=== PATIENT | female | born 1955 | race Caucasian/White ===

== ENCOUNTER 2016-04-22 05:24 | Inpatient (IN) | payer BC ==
[2016-04-21 09:57] VITALS: BMI 32.5
[2016-04-22] VITALS (31 sets, daily range): BP systolic 96–131; BP diastolic 52–94; PULSE 64–103; RESP 9–22; Ht 162.6 cm; Wt 92.0 kg
[~2016-04-22] VITALS: Ht 162.6 cm; Wt 92.0 kg
[2016-04-22] MEDS ORDERED: ATOR10TA65 PO (06:28)
[2016-04-22] MEDS ORDERED: LEVO112T2 PO (06:28)
[2016-04-22] MEDS ORDERED: DIAZ5SOL PO (06:28)
[2016-04-22] MEDS ORDERED: TRAM50TA2 PO (06:28)
[2016-04-22] MEDS ORDERED: BUPIVACAINE 0.25%/EPI (SDV) 30 ML INJ ONE (06:47)
[2016-04-22] MEDS ORDERED: GELATIN SIZE 100 SPONGE ONE ×2 (06:47→13:57)
[2016-04-22] MEDS ORDERED: SURGIFOAM POWDER 1 GM KIT ONE ×2 (06:47→08:59)
[2016-04-22] MEDS ORDERED: CEFAZOLIN 1 GM INJ ONE ×2 (06:47→07:44)
[2016-04-22] MEDS ORDERED: HEPARIN 1000 UNITS/ML 10 ML INJ ONE (06:48)
[2016-04-22] MEDS ORDERED: THROMBIN 5000 UNIT VIAL ONE ×2 (06:48→09:00)
--- NOTE | 2016-04-22 06:54 | HPN ---
Date/Time of Note Date/Time of Note DATE: 04/22/16 TIME: 06:54 Interval H&P Admission Note Pt. seen H&P reviewed: No system changes ERIN SHELBY MD Apr 22, 2016 06:54
[2016-04-22] MEDS ORDERED: PROPOFOL 100 ML ONE ×2 (06:55→11:31)
[2016-04-22] MEDS ORDERED: ROCURONIUM 50 MG INJ ONE ×2 (06:55→11:34)
[2016-04-22] MEDS ORDERED: HYDROmorphONE 2 MG/ML SYG ONE (06:56)
[2016-04-22] MEDS ORDERED: HETASTARCH 6% NACL 500 ML BAG ONE (07:00)
[2016-04-22] MEDS ORDERED: LACTATED RINGER'S 1,000 ML IV* SCH (07:00)
[2016-04-22] MEDS ORDERED: OXYCODONE/ACETAMINOPHEN (10/325) TAB PO PRN (07:00)
[2016-04-22] MEDS ORDERED: ACETAMINOPHEN 325 MG TAB PO PRN (07:00)
[2016-04-22] MEDS ORDERED: ONDANSETRON 4 MG INJ IV PRN ×2 (07:00→12:00)
[2016-04-22] MEDS ORDERED: HYDROmorphONE 0.2 MG/ML PCA IV SCH (07:00)
[2016-04-22] MEDS ORDERED: HYDROmorphONE 1 MG/ML SYG IV PRN (07:00)
[2016-04-22] MEDS ORDERED: NALOXONE (0.4 MG/ML) INJ IV PRN (07:00)
[2016-04-22] MEDS ORDERED: AL HYDROX/MG HYDROX/SIMETH 30 ML CUP PO PRN (07:00)
[2016-04-22] MEDS ORDERED: DIPHENHYDRAMINE 25 MG CAP PO PRN (07:00)
[2016-04-22] MEDS ORDERED: BISACODYL 10 MG SUPP PR PRN (07:00)
[2016-04-22] MEDS ORDERED: DIPHENHYDRAMINE 50 MG INJ IV PRN ×2 (07:00→12:00)
[2016-04-22] MEDS: CEFAZOLIN 1 GM/50 ML (PMX) 50 ML IVPB SCH ×3 (07:00→21:56)
[2016-04-22] MEDS ORDERED: CEPASTAT LOZENGE MT PRN (07:00)
[2016-04-22] MEDS ORDERED: CEFAZOLIN 2 GM/50 ML (PMX) 50 ML IVPB SCH (07:00)
[2016-04-22] MEDS ORDERED: ZOLPIDEM 5 MG TAB PO PRN (07:00)
[2016-04-22] MEDS ORDERED: MIDAZOLAM 1 MG/ML 2 ML INJ ONE (07:19)
[2016-04-22] MEDS ORDERED: hydrALAzine 20 MG INJ ONE (07:44)
[2016-04-22] MEDS ORDERED: LABETALOL HCL 20MG INJ ONE (08:33)
[2016-04-22] MEDS ORDERED: PHENYLephrine (100 MCG/ML) 5ML SYG ONE ×4 (08:41→09:06)
[2016-04-22] MEDS ORDERED: ACETAMINOPHEN 1000MG/100ML IV 100 ML ONE (08:50)
[2016-04-22] MEDS ORDERED: DEXAMETHASONE 4 MG/ML 1 ML INJ ONE (09:00)
[2016-04-22] MEDS ORDERED: METOCLOPRAMIDE 10 MG INJ ONE (09:00)
[2016-04-22] MEDS: ASCORBIC ACID 500 MG TAB PO SCH (09:00)
[2016-04-22] MEDS ORDERED: ONDANSETRON 4 MG INJ ONE (09:00)
[2016-04-22] MEDS: DOCUSATE SODIUM 100 MG CAP PO SCH ×2 (09:00→21:00)
--- NOTE | 2016-04-22 10:17 | RADRPT ---
PROCEDURE: XR Abdomen. CLINICAL INDICATION: Abdomen pain. Postop lumbar fusion. TECHNIQUE: AP supine abdomen x-ray. Portable. Intraoperative. COMPARISON: None. FINDINGS: The bowel gas pattern is normal with no evidence of obstruction. Surgical clips are present in the pelvis. There is a plate and screws overlying the lower lumbosacr al spine. There is a Parker catheter in the bladder. There is no other radiopaque foreign body. There are no abnormal calcifications overlying the urinary tracts. IMPRESSION: 1. No abnormal radiopaque foreign body. 2. Postoperative changes. RPTAT: QQ .Julian Nuñez MD, MD Date Time Electronically viewed and signed by .Julian Nuñez MD, on 04/22/2016 10:17 .R/
[2016-04-22] MEDS ORDERED: FAMOTIDINE 20 MG INJ ONE (10:38)
--- NOTE | 2016-04-22 11:26 | OPR ---
DATE OF OPERATION: 04/22/2016 PREOPERATIVE DIAGNOSIS: Unstable grade II isthmic spondylolisthesis at L5-S1 with stenosis and radiculopathy. POSTOPERATIVE DIAGNOSES: Unstable grade II isthmic spondylolisthesis at L5-S1 with stenosis and radiculopathy. PROCEDURE: 1. Anterior lumbar interbody fusion at L5-S1. 2. Placement of intervertebral biomechanical device at L5-S1 with integral screws 3. Use of allograft. 4. Use of autograft. 5. Application of NuShield device. 6. Use of C-arm fluoroscopy with interpretation without radiologist present. 7. Intraoperative neuromonitoring (2 hours). 8. Osteotomy of L5 in order to aid in reduction of spondylolisthesis. PRIMARY SURGEON: Sixto Loco MD COSURGEON: Dandy Gallego MD SALESPERSON SHOES: AGUSTIN Fabian NEED FOR COSURGEON: A co-surgeon was required in order to perform the vascular access. FINDINGS: Neuromonitoring at the start of the case revealed right L5 amplitude down 20%, left L5 amplitude down 20%, left S1 amplitude down 70%, and right S1 amplitude 50%. At the end of the case, right L5 amplitude down 20%, left L5 amplitude down 40%, left S1 amplitude down 20%, and right S1 amplitude 20% . The patient had a significant anterolisthesis at L5-S1 with deformity of the endplates. ESTIMATED BLOOD LOSS: Per Dr. Gallego. DRAINS: None. SPECIMENS: L5-S1 disk. COMPLICATIONS OF PROCEDURES: None. ANESTHESIOLOGIST: Dr. Iqbal TYPE OF ANESTHESIA: General. INDICATIONS: This is a 60-year-old female with chronic low back pain with radiculopathy in the setting of a grade II isthmic spondylolisthesis at L5-S1. She had failed nonoperative measures, therefore, I recommended proceeding with the above-mentioned surgery. Preoperatively, we discussed risks, benefits, and alternatives. She understood and wished to proceed. DESCRIPTION OF PROCEDURE IN DETAIL: The patient was identified in the preoperative holding area, given Ancef antibiotic, and taken to the operating room, where she was successfully placed under general anesthesia. Neuromonitoring leads were placed, and sequential compressive devices were applied. Parker catheter was introduced. A line was placed. OG tube was placed. Neuromonitoring was performed by [facility] to include SSEP, MEP , and EMG for 2 hours. Start time was 8:00 a.m., closure time was 10:00 a.m. The patient was placed on the operating table in supine position. Abdomen was prepped and draped in usual sterile fashion. A left-sided anterior retroperitoneal approach was performed by Dr. Gallego. He will dictate the approach. Once we identified the spine, a spinal needle was placed and then AP and lateral films were obtained. The needle was just into the annulus as we could not get into the disk space due to the deformity. In order to correct the deformity, an osteotomy of L5 had to be performed in order to perform a reduction. I then placed Escalera elevators into the disk space to open up the area and help with the reduction. I then placed dilators and spreaders. Once this was done, I was able to perform a diskectomy. Due to the chronicity of the slip, the endplate had become quite sclerotic and therefore, I had to use a high-speed bur to decorticate the sclerosis. I took local autograft from the osteotomy site and mixed this with the allograft. Once the decompression and reduction was performed, I placed various trials and chose the appropriate graft height. I then took the PEEK cage, within which I placed the allograft and the autograft and I impacted the intervertebral biomechanical device into the L5-S1 level to complete the anterior fusion with placement of 25 mm integral screws into the cage. Once this was done, the wound was irrigated. NuShield device was applied and Dr. Gallego proceeded to perform the closure after achieving hemostasis. He will dictate the closure separately as well. There were no apparent complications during the first stage. Lap, sponge and instrument counts were correct x2. The patient will then be placed into the prone position for stage II. Posterior approach will be dictated separately. IMPLANTS: 1. Synthes SynFix Evolution 36 mm wide, 12 mm deep, 12 mm height with 14 degree lordosis. 2. Fibergraft. Dictated By: SIXTO ARORA/SANJU Conf#: [id number] DID#: [id number] MTDD
[2016-04-22] MEDS ORDERED: GLYCOPYRROLATE 1 MG INJ ONE (11:35)
[2016-04-22] MEDS ORDERED: NEOSTIGMINE 3 MG/3 ML SYRINGE ONE (11:35)
[2016-04-22] MEDS ORDERED: LABETALOL HCL 20MG INJ IV PRN (12:00)
[2016-04-22] MEDS ORDERED: HYDROmorphONE (0.2 MG/ML) 10ML SYG IV PRN ×3 (12:00)
[2016-04-22] MEDS ORDERED: morphine (1 MG/ML) 10ML SYRINGE IV PRN ×3 (12:00)
[2016-04-22] MEDS ORDERED: ALBUMIN HUMAN 5% 250 ML IV PRN (12:00)
[2016-04-22] MEDS ORDERED: FENTAnyl 50 MCG/ML VIAL IV PRN ×2 (12:00)
[2016-04-22] MEDS ORDERED: hydrALAzine 20 MG INJ IV PRN (12:00)
[2016-04-22] MEDS ORDERED: MEPERIDINE 25 MG INJ IV PRN (12:00)
[2016-04-22] MEDS ORDERED: EPHEDrine SULFATE 50 MG/5 ML SYG IV PRN (12:00)
--- NOTE | 2016-04-22 12:24 | OPR ---
DATE OF OPERATION: 04/22/2016 PREOPERATIVE DIAGNOSIS: Status post stage 1 ALIF at L5-S1 for a grade II isthmic spondylolisthesis at L5-S1. POSTOPERATIVE DIAGNOSIS: Status post stage 1 ALIF at L5-S1 for a grade II isthmic spondylolisthesis at L5-S1. OPERATION PERFORMED: 1. Bilateral pedicle screw replacement at L5 and S1. 2. Posterolateral fusion at L5-S1. 3. Bone marrow aspiration from the L5 vertebral body. 4. Use of allograft. 5. Use of C-arm fluoroscopy with interpretation without radiologist present. 6. Intraoperative neuromonitoring (2 hours). IMPLANTS: Colbert Perry percutaneous pedicle screws, 6.5 x 40 mm x 2. PRIMARY SURGEON: Sixto Loco MD NEON GLASS BENDER: AGUSTIN Fabian NEED FOR FOX FARMER: NEED FOR FOX FARMER: During this spinal surgical procedure, my operations and intelligence assistant was used to retract and protect the spinal nerves and dural sac. My operations and intelligence assistant also employed the suction catheters to evacuate blood from the surgical field to improve visualization of the neural structures. The operations and intelligence assistant was medically necessary to facilitate the completion of the surgery in a safe and expeditious manner. State of [place] regulations, as well as hospital bylaws, preclude the use of non-licensed health care personnel, such as operating room technicians, to perform these functions. FINDINGS: Neuromonitoring at start of the case revealed right L5 and S1 amplitude down 20%. At the end of the case, nerve signals returned to normal. ESTIMATED BLOOD LOSS: 40 mL. DRAINS: None. SPECIMENS: None. COMPLICATIONS OF PROCEDURES: None. ANESTHESIOLOGIST: Dr. Iqbal TYPE OF ANESTHESIA: General. INDICATIONS FOR PROCEDURE: This is a 60-year-old female with grade II isthmic spondylolisthesis who completed stage I ALIF, which is dictated separately. She now presents for the posterior stage. DESCRIPTION OF PROCEDURE IN DETAIL: After completion of stage I, which is dictated separately, the patient was placed in the operative table in prone position over a Yvon frame. All bony prominences were well padded. The back was then prepped and draped in usual sterile fashion. Neuromonitoring was utilized for 2 hours to include SSEP, MEP, and EMG was performed by [employer] with start time 10:00 a.m., closure time 12:00 p.m. Incision sites were identified and anesthetized with Marcaine and epinephrine. Incision was then made over the L5 and S1 pedicles bilaterally. The incision was taken down to dorsal fascia, which was incised with Bovie cautery. I then placed Jamshidi needles into the L5 and S1 pedicles bilaterally with bone marrow aspiration performed from the right L5 pedicle and vertebral body. I then passed guidewires followed by placement of pedicle screws bilaterally at L5 and S1. I stimulated each of the screws and there was no evidence of cortical breach. I then placed a 40 mm dominick on the left at 45 mm dominick on the right with placement of set screws with tightening per manufacture's specifications. Once these were in , I took final AP and lateral images and I was happy with the placement of the hardware and alignment of the spine. Nerve signals improved as compared to the start of the case. The wound was then irrigated. The posterolateral gutters were prepared. I took the allograft and placed this posterolaterally for posterolateral fusion at L5-S1. I closed the deep fascia with #1 Vicryl stitch, and the subcutaneous tissue with 2-0 Vicryl stitch. Dermabond was then applied. The patient was then awakened from anesthesia and taken to recovery room in stable condition. Lap, sponge, and instrument counts were correct x2. There were no apparent complications during the procedure. Additional dose of antibiotics were given to the patient. The patient will be admitted to the [facility] for routine postoperative care to include pain control, neurovascular checks, antibiotics, and physical therapy. Dictated By: SIXTO ARORA/SANJU Conf#: [id number] DID#: [id number] ADDENDUM: The patient was returned to the OR in 04/23 for an exhange of the left pedicle screws. Dictated separately. 7.5x45 mm screw at L5 and new 6.5x40mm screw at S1 with 45 mm dominick on the left. GLORIA
[2016-04-22] MEDS: FENTAnyl 50 MCG/ML VIAL IV PRN ×2 (12:46→13:00)
--- NOTE | 2016-04-22 13:56 | RADRPT ---
PROCEDURE: AP view of the lumbosacral junction. CLINICAL INDICATION: Intraoperative radiograph. TECHNIQUE: 1 image was performed in the right upper abdomen. COMPARISON: LS spine series 04/22/2016. FINDINGS: Fluoro time: 56.9 seconds mGy: 1.04 IMPRESSION: A compression plate secured of plaque screws is identified centered at L5-S1 for purposes of anterio r lumbosacral fusion. Esequiel Zelaya Physician Date Time Electronically viewed and signed by Esequiel Zelaya Physician on 04/22/2016 13:56 /
[2016-04-22] MEDS: D5W-0.45 NACL + KCL 20 MEQ 1,000 ML IV SCH ×2 (14:45→16:54)
[2016-04-22] MEDS: DIAZEPAM 5 MG TAB PO PRN (14:45)
--- NOTE | 2016-04-22 15:03 | RADRPT ---
PROCEDURE: Intraoperative radiographs obtained during surgery for anterior spinal fusion. CLINICAL INDICATION: Intraoperative radiographs for anterior cervical fusion. TECHNIQUE: Total of 89 images were performed. COMPARISON: No. FINDINGS: Initial AP and lateral views the lumbosacral spine demonstrate disk space narrowing with grade 1 ant erolisthesis of L5 on S1. Multiple subsequent images demonstrate interval anterior fusion with plac ement of a compression plate at L5-S1 secured with lag screws to the lower body of L5 and ventral quiroz perior body of S1. There is a biomechanical spacer at the lumbosacral junction. Subsequently, pedi cular screws were placed at the level of L5 and S1 and secured to posterior stabilization rods. 2.9 mm of 4 translation of L5 is noted relative to S1 units taken at 11:36 a.m. . A subsequent image p erformed 11:38 a.m. demonstrates anatomic alignment between L5 and S1 with interval reduction of the grade 1 anterolisthesis. The final AP view of the lumbosacral junction demonstrates similar finding s. Radiology: Exposure dose or time reported for procedure using fluoroscopy. Fluoro time: 229.7 sec onds mGy: 205.77 The exposure time and number of fluoroscopic images if radiation exposure indices are not available. IMPRESSION: 1. Status post anterior and posterior fixation with interbody spacer at L5-S1 of the grade 1 anahy listhesis which appears anatomically aligned on the lateral final image. Physician Montserrat Date Time Electronically viewed and signed by Physician Montserrat on 04/22/2016 15:03 SAMMI/
--- NOTE | 2016-04-22 15:56 | CONS ---
DATE OF ADMISSION: 04/22/2016 DATE OF CONSULTATION: 04/22/2016 POSTOPERATIVE MEDICAL CONSULTATIVE NOTE: Thank you very much for allowing me to evaluate this 60-year-old female who just underwent lumbar la minectomy. HISTORICAL EVENTS: As you well know, this patient has had a long history of low back pain with bila teral radicular leg pain. Despite conservative measures to allow resolution, she continues to be sy mptomatic and elected to proceed with surgery. Postoperatively, in recovery, she is somnolent, does respond to name, complains of back pain, but has no shortness of breath, chest pain, nausea, vomiti ng, or abdominal pain. PAST MEDICAL HISTORY: Includes: 1. Hypothyroidism. 2. Hyperlipidemia. FAMILY HISTORY: Positive for bipolar disorder, lymphoma as well as bladder cancer. SOCIAL HISTORY: She works in an insurance, rarely drinks. She was a former smoker. MEDICATIONS: Prior to admission: 1. Tramadol 50 mg q.i.d. p.r.n. 2. Valium 2.5 p.r.n. 3. Atorvastatin 10. 4. Levothyroxine 112 mcg daily. PHYSICAL EXAMINATION: GENERAL: Somnolent female in no acute distress. VITAL SIGNS: BP 112/80, pulse 70, respirations are 20, she was afebrile. EYES: Extraocular muscles were full. NOSE, MOUTH, AND THROAT: Normal. NECK: Supple. There was no jugular venous distention, thyroid enlargement or adenopathy. Carotids 2+. LUNGS: Clear. HEART: Rhythm regular. ABDOMEN: Nontender. Liver and spleen were not palpable. No masses or tenderness were noted. EXTREMITIES: No edema. NEUROLOGIC: No lateralizing motor weakness. She was somnolent, and answers simple questions. IMPRESSION: 1. Stable postoperative lumbar laminectomy. 2. History of hyperlipidemia. Will continue lipid-lowering medications. 3. Hypothyroidism. Continue thyroid replacement. We will follow her daily for signs and symptoms of thrombolic disease. Dictated By: ROMELIA LOPEZ/NTS Conf#: [id number] DID#: [id number] CC: ERIN SHELBY MD;*EndCC*
--- NOTE | 2016-04-22 19:38 | RADRPT ---
PROCEDURE: CT Lumbar Spine. CLINICAL INDICATION: Low back pain. Evaluate hardware replacement. TECHNIQUE: The study was performed on a GE [address] scanner. Spiral axial images were obtained through the lumbar spine. Sagittal and coronal reformations were created from the ra w axial data. The images were reviewed on a PACS workstation. The CTDI vol is 82.59 mGy an the DLP i s 1806.08 mGy-cm. COMPARISON: No prior studies are available for comparison. FINDINGS: 10 mm of anterolisthesis at L5-S1 is seen. Approximate 3 mm of retrolisthesis at L4-5 is seen. The remainder of the lumbar lordosis is maintained. The vertebral body heights are normal. Multilevel endplate osteophytosis is seen. No acute fracture or subluxation is seen. The osseous structures are well mineralized. The paravertebral soft tissues are unremarkable. Bilateral pedicle screw fixation is seen at L5-S1 with an interbody spacer. In addition, anterior screw fixation at L5-S1 is seen. The bilateral pedicle screws at L5 are well positioned. The right pedicle screw at S1 is well posi tioned. The left pedicle screw courses lateral to the cortex of the S1 vertebral body within the pa ravertebral soft tissues. Acute postoperative changes are seen with surrounding inflammatory change s and a air. T12-L1: Moderate disk height loss is seen with vacuum disk phenomena. A posterior disk bulge is see n which is mild in extent. No significant central canal or foraminal stenosis is seen. L1-L2: The disc, central canal, and neuroforamina are unremarkable. L2-L3: Minimal bulging of the posterior annulus is seen. Calcification of the posterior annulus is seen. No significant central canal stenosis is seen. Very mild bilateral foraminal stenosis is see n. L3-L4: A mild posterior disk bulge is seen with ligamentum flavum thickening. Mild to moderate bila teral facet arthropathy is seen. The central canal is borderline in size. Mild to moderate bilater al foraminal stenosis is seen. L4-L5: Mild posterior disk height loss is seen. No significant central canal or foraminal stenosis is seen. L5-S1: Bilateral pars defects are seen. Again noted is bilateral pedicle screw fixation with interb anjum spacer as well as anterior screw fixation. Air within the disk space is seen as well as in the surrounding paravertebral soft tissues with increased soft tissue density. Again noted are a well-p ositioned bilateral L5 and right S1 pedicle screws. The left pedicle screw courses lateral to the c ortex of the S1 vertebral body within the paravertebral soft tissues. IMPRESSION: 1. Status post lumbar interbody fusion with bilateral pedicle screw fixation at L5-S1 with acute pos toperative changes as described above. The left pedicle screw at S1 courses lateral to the S1 verte bral body cortex in the paravertebral soft tissues. The remaining pedicle screws are well positione d. 2. 10 mm of anterolisthesis at L5-S1 likely secondary to the bilateral pars defects. 3. Approximately 3 mm of retrolisthesis at L4-5. RPTAT: HPNM Physician Carlos Date Time Electronically viewed and signed by Physician Carlos on 04/22/2016 19:37 /
[2016-04-22] MEDS: ATORVASTATIN 10 MG TAB PO SCH (21:57)
[2016-04-23] VITALS (25 sets, daily range): BP systolic 112–159; BP diastolic 52–80; PULSE 84–110; RESP 11–20
[2016-04-23] MEDS: D5W-0.45 NACL + KCL 20 MEQ 1,000 ML IV SCH ×3 (00:08→21:44)
[2016-04-23] MEDS: HYDROmorphONE 0.2 MG/ML PCA IV SCH ×2 (00:13→13:17)
[2016-04-23] MEDS: PANTOPRAZOLE 40 MG INJ IV SCH (05:22)
[2016-04-23] MEDS: LEVOTHYROXINE 112 MCG TAB PO SCH (05:22)
[2016-04-23 05:29] LABS: ADD SCAN DIFF NO
[2016-04-23 05:45] LABS: BASOPHILS % 0.1 % (0.0-2.0); HEMATOCRIT 29.8 % (37.0-47.0); HEMOGLOBIN 9.2 g/dl (12.0-16.0); LYMPHOCYTES # 1.3 10^3/ul (0.8-2.9); LYMPHOCYTES % 13.2 % (15.0-51.0); MEAN CORPUSCULAR HEMOGLOBIN 27.9 pg (29.0-33.0); MEAN CORPUSCULAR HGB CONC 30.9 g/dl (32.0-37.0); MEAN CORPUSCULAR VOLUME 90.3 fl (82.0-101.0); MEAN PLATELET VOLUME 12.2 fl (7.4-10.4); MONOCYTE # 1.1 10^3/ul (0.3-0.9); MONOCYTES % 10.9 % (0.0-11.0); NEUTROPHIL # 7.4 10^3/ul (1.6-7.5); NEUTROPHILS % 75.4 % (39.0-77.0); PLATELET COUNT 214 10^3/UL (140-415); RED CELL DISTRIBUTION WIDTH 12.6 % (11.5-14.5); WHITE BLOOD COUNT 9.8 10^3/ul (4.8-10.8)
[2016-04-23 05:46] LABS: POTASSIUM 4.7 mmol/L (3.5-5.1)
[2016-04-23 05:49] LABS: CALCIUM 7.9 mg/dl (8.4-10.2); CREATININE 0.82 mg/dl (0.44-1.00)
[2016-04-23 05:50] LABS: MAGNESIUM 1.8 mg/dl (1.7-2.5)
[2016-04-23] MEDS ORDERED: ROCURONIUM 50 MG INJ ONE ×2 (07:00→15:51)
--- NOTE | 2016-04-23 08:37 | CONS ---
Date/Time of Note Date/Time of Note DATE: 04/23/16 TIME: 08:36 Assessment/Plan Assessment/Plan Additional Assessment/Plan 1. Post op lumbar laminectomy with cont left si pain, to rev with neuro, labs rev Consultation Date/Type/Reason Admit Date/Time Apr 22, 2016 at 05:24 Initial Consult Date Detailed Summary Respiratory: No shortness of breath Cardiovascular: No chest pain Gastrointestinal: no complaints Genitourinary: other (ruiz in place) Musculoskeletal: No back pain Neurologic: other (left si pain persists) Exam/Review of Systems Vital Signs Vitals Vital Signs Date Time Temp Pulse Resp B/P Pulse Ox O2 Delivery O2 Flow Rate FiO2 04/23/16 07:47 98.5 97 16 124/70 100 04/23/16 05:44 Room Air 04/22/16 17:30 2.0 Intake and Output 04/22/16 04/22/16 04/23/16 15:00 23:00 07:00 Intake Total 1370 ml 550 ml 1800 ml Output Total 200 ml 600 ml 950 ml Balance 1170 ml -50 ml 850 ml Exam Neck: No jvd Respiratory: clear to auscultation Cardiovascular: regular rate and rhythm Gastrointestinal: soft Extremities: No edema (and no calf tend) Results Result Diagram: 04/23/16 0430 04/23/16 0430 Results 24 hrs Laboratory Tests Test 04/23/16 04:30 Anion Gap 16 Basophils # 0.0 Basophils % 0.1 Blood Urea Nitrogen 14 Calcium Level 7.9 L Carbon Dioxide Level 26 Chloride Level 103 Creatinine 0.82 Eosinophils # 0.0 Eosinophils % 0.0 Glucose Level 132 Hematocrit 29.8 L Hemoglobin 9.2 L Lymphocytes # 1.3 Lymphocytes % 13.2 L Magnesium Level 1.8 Mean Corpuscular Hemoglobin 27.9 L Mean Corpuscular Hemoglobin Concent 30.9 L Mean Corpuscular Volume 90.3 Mean Platelet Volume 12.2 H Monocytes # 1.1 H Monocytes % 10.9 Neutrophils # 7.4 Neutrophils % 75.4 Nucleated Red Blood Cells # 0.0 Nucleated Red Blood Cells % 0.0 Platelet Count 214 Potassium Level 4.7 Red Blood Count 3.30 L Red Cell Distribution Width 12.6 Sodium Level 140 White Blood Count 9.8 Medications Medications Current Medications Lactated Ringer's 1,000 ml @ 20 mls/hr Q24H IV* ; Start 04/22/16 at 07:00; Stop 04/24/16 at 08:59 Potassium Chloride/Dextrose/ Sod Cl (D5-1/2ns + KCl 20 Meq) 1,000 ml @ 100 mls/ hr Q10H IV Last administered on 04/23/16 00:08; Admin Dose 100 MLS/HR; Start at 06:54 Oxycodone/ Acetaminophen (Endocet (10/ 325)) 1 tab Q4H PRN PO PAIN LEVEL 1-5; Start 04/22/16 at 07:00 Oxycodone/ Acetaminophen (Endocet (10/ 325)) 2 tab Q4H PRN PO PAIN LEVEL 6-10; Start 04/22/16 at 07:00 Hydromorphone HCl (Dilaudid) 0.2 mg Q1H PRN IV BREAKTHROUGH PAIN; Start at 07:00 Zolpidem Tartrate (Ambien) 5 mg HS PRN PO INSOMNIA; Start 04/22/16 at 07:00 Ondansetron HCl (Zofran Inj) 4 mg Q6H PRN IV NAUSEA AND/OR VOMITING Last administered on 04/22/16 21:57; Admin Dose 4 MG; Start 04/22/16 at 07:00 Bisacodyl (Dulcolax Supp) 10 mg DAILY PRN [place] CONSTIPATION; Start 04/22/16 at 07 :00 Docusate Sodium (Colace) 100 mg BID PO ; Start 04/22/16 at 09:00 Pantoprazole (Protonix Iv) 40 mg DAILY@06 IV Last administered on 04/23/16 05: 22; Admin Dose 40 MG; Start 04/23/16 at 06:00 Al Hydrox/Mg Hydrox/Simethicone (Mag-Al Plus) 15 ml Q6H PRN PO CONSTIPATION/ DYSPEPSIA; Start 04/22/16 at 07:00 Acetaminophen (Tylenol Tab) 650 mg Q4H PRN PO GILMAN OR TEMP GREATER THAN 101.3F; Start 04/22/16 at 07:00 Ascorbic Acid (Vitamin C) 1,000 mg DAILY PO ; Start 04/22/16 at 09:00 Diazepam (Valium) 5 mg TID PRN PO MUSCLE SPASMS Last administered on 04/22/16 14:45; Admin Dose 5 MG; Start 04/22/16 at 07:00 Phenol (Cepastat Lozenge) 1 lozenge PRN PRN [place] SORE THROAT Last administered on 04/22/16 21:57; Admin Dose 1 LOZENGE; Start 04/22/16 at 07:00 Diphenhydramine HCl (Benadryl) 25 mg Q6H PRN PO ITCHING; Start 04/22/16 at 07: 00 Diphenhydramine HCl (Benadryl) 25 mg Q6H PRN IV ITCHING; Start 04/22/16 at 07: 00 Naloxone HCl (Narcan) 0.2 mg Q2M PRN IV RR 8 BREATHS/MIN OR LESS; Start at 07:00 Miscellaneous Information 1. Hold BRIM MOLDER at 1,000... BRIM MOLDER IV ; Start 04/22/16 at 07: 00 Atorvastatin Calcium (Lipitor) 10 mg QHS PO Last administered on 04/22/16 21: 57; Admin Dose 10 MG; Start 04/22/16 at 21:00 Levothyroxine Sodium (Synthroid) 112 mcg DAILY@06 PO Last administered on 05:22; Admin Dose 112 MCG; Start 04/23/16 at 06:00 Hydromorphone HCl (Dilaudid BRIM MOLDER) BRIM MOLDER to be started in PACU Q4PCA IV Last administered on 04/23/16 00:13; Admin Dose 6 MG; Start 04/22/16 at 15:30 ROMELIA DRIVER MD Apr 23, 2016 08:37
--- NOTE | 2016-04-23 08:41 | PN ---
Date/Time of Note Date/Time of Note DATE: 04/23/16 TIME: 08:39 Assessment/Plan Lines/Catheters IV Catheter Type (from Nrsg): Peripheral IV Parker in Place (from Nrsg): Yes Assessment/Plan Assessment/Plan The patient is postoperative day #1 from lumbar fusion. She has left buttock pain and slight weakness in the left leg. The CT scan showed Mal-placement of the left S1 pedicle screw. As such I recommend taking her to the operating room to remove and possibly replace the screw. The risks benefits and alternatives were discussed with the patient in detail and she wishes to proceed. We made her n.p.o. Subjective 24 Hr Interval Summary Complains of left buttock pain Exam/Review of Systems Vital Signs Vitals Vital Signs Date Time Temp Pulse Resp B/P Pulse Ox O2 Delivery O2 Flow Rate FiO2 04/23/16 07:47 98.5 97 16 124/70 100 04/23/16 05:44 Room Air 04/22/16 17:30 2.0 Intake and Output 04/22/16 04/22/16 04/23/16 15:00 23:00 07:00 Intake Total 1370 ml 550 ml 1800 ml Output Total 200 ml 600 ml 950 ml Balance 1170 ml -50 ml 850 ml Exam Free Text/Dictation Patient has pain and spasms in the left low back and buttock area. She has slight weakness in the left leg Results Result Diagram: 04/23/16 0430 04/23/16 0430 ERIN SHELBY MD Apr 23, 2016 08:41
[2016-04-23] MEDS: DOCUSATE SODIUM 100 MG CAP PO SCH ×2 (09:00→21:42)
[2016-04-23] MEDS: ASCORBIC ACID 500 MG TAB PO SCH (09:00)
[2016-04-23] MEDS: DIAZEPAM 5 MG TAB PO PRN (13:19)
[2016-04-23] MEDS ORDERED: CEFAZOLIN 2 GM/50 ML (PMX) 50 ML IVPB ONE (15:00)
[2016-04-23] MEDS ORDERED: GELATIN SIZE 100 SPONGE ONE (15:47)
[2016-04-23] MEDS ORDERED: SURGIFOAM POWDER 1 GM KIT ONE (15:47)
[2016-04-23] MEDS ORDERED: BUPIVACAINE 0.25%/EPI (SDV) 30 ML INJ ONE (15:47)
[2016-04-23] MEDS ORDERED: BUPIVACAINE 0.25% (MPF) 30 ML INJ ONE (15:47)
[2016-04-23] MEDS ORDERED: POLYMYXIN/BACITRACIN 1L IRRIG ONE (15:48)
[2016-04-23] MEDS ORDERED: THROMBIN 5000 UNIT VIAL ONE (15:48)
[2016-04-23] MEDS ORDERED: GLYCOPYRROLATE 1 MG INJ ONE (15:51)
[2016-04-23] MEDS ORDERED: NEOSTIGMINE 3 MG/3 ML SYRINGE ONE (15:51)
[2016-04-23] MEDS ORDERED: CEFAZOLIN 1 GM INJ ONE (15:51)
[2016-04-23] MEDS ORDERED: LIDOCAINE 100 MG SYRINGE ONE (15:51)
[2016-04-23] MEDS ORDERED: PROPOFOL 20 ML ONE (15:51)
[2016-04-23] MEDS ORDERED: DEXAMETHASONE 4 MG/ML 1 ML INJ ONE (15:53)
[2016-04-23] MEDS ORDERED: FENTAnyl 50 MCG/ML VIAL ONE (15:53)
[2016-04-23] MEDS ORDERED: ONDANSETRON 4 MG INJ ONE (15:53)
[2016-04-23] MEDS ORDERED: MIDAZOLAM 1 MG/ML 2 ML INJ ONE (15:53)
[2016-04-23] MEDS ORDERED: ZOLPIDEM 5 MG TAB PO PRN (17:00)
[2016-04-23] MEDS ORDERED: MEPERIDINE 25 MG INJ IV PRN (17:00)
[2016-04-23] MEDS ORDERED: DIPHENHYDRAMINE 50 MG INJ IV PRN ×2 (17:00)
[2016-04-23] MEDS ORDERED: hydrALAzine 20 MG INJ IV PRN (17:00)
[2016-04-23] MEDS ORDERED: BISACODYL 10 MG SUPP PR PRN (17:00)
[2016-04-23] MEDS ORDERED: NALOXONE (0.4 MG/ML) INJ IV PRN (17:00)
[2016-04-23] MEDS ORDERED: EPHEDrine SULFATE 50 MG/5 ML SYG IV PRN (17:00)
[2016-04-23] MEDS ORDERED: CEFAZOLIN 1 GM/50 ML (PMX) 50 ML IVPB SCH ×2 (17:00→17:30)
[2016-04-23] MEDS ORDERED: HYDROmorphONE 0.2 MG/ML PCA IV SCH (17:00)
[2016-04-23] MEDS ORDERED: CEPASTAT LOZENGE MT PRN (17:00)
[2016-04-23] MEDS ORDERED: AL HYDROX/MG HYDROX/SIMETH 30 ML CUP PO PRN (17:00)
[2016-04-23] MEDS ORDERED: FENTAnyl 50 MCG/ML VIAL IV PRN ×3 (17:00)
[2016-04-23] MEDS ORDERED: TRIMETHOBENZAMIDE 100 MG/ML VIAL IM PRN (17:00)
[2016-04-23] MEDS ORDERED: ONDANSETRON 4 MG INJ IV PRN ×2 (17:00)
[2016-04-23] MEDS ORDERED: MIDAZOLAM 1 MG/ML 2 ML INJ IV PRN (17:00)
[2016-04-23] MEDS ORDERED: LABETALOL HCL 20MG INJ IV PRN (17:00)
[2016-04-23] MEDS ORDERED: HYDROmorphONE (0.2 MG/ML) 10ML SYG IV PRN ×3 (17:00)
[2016-04-23] MEDS ORDERED: PHENYLephrine (100 MCG/ML) 5ML SYG ONE (17:06)
[2016-04-23] MEDS ORDERED: METOCLOPRAMIDE 10 MG INJ ONE (17:54)
--- NOTE | 2016-04-23 18:14 | OPPN ---
Date/Time of Note Date/Time of Note DATE: 04/23/16 TIME: 18:11 Operative/Procedure Note Pre-Operative Diagnosis malplaced and painful left S1 screw s/p LS fusion Post-Operative Diagnosis same Procedure removal of left L5 and S1 ped screw with replacement neurom (1.25) c-arm Surgeon: ERIN SHELBY MD [employer] Keyholder: BARRIE NAIK PA-C Anesthesiologist: Wilfrid Palomares M.D. Findings see dictation Implants/Grafts desean mendez Estimated blood loss: 0 - 10 ml's Drains: Not applicable Specimens hw sent to path Complications: None Anesthesia type: general ERIN SHELBY MD Apr 23, 2016 18:13
--- NOTE | 2016-04-23 19:03 | OPR ---
DATE OF OPERATION: 04/23/2016 PREOPERATIVE DIAGNOSES: Malplaced painful left S1 pedicle screw. POSTOPERATIVE DIAGNOSES: Malplaced painful left S1 pedicle screw. OPERATION PERFORMED: 1. Removal of left L5 and S1 pedicle screws with associated dominick and set screws. 2. Placement of the left L5 and S1 pedicle screws. 3. Intraoperative neuromonitoring ( 1 hour 15 minutes). PRIMARY SURGEON: Sixto Loco MD PROCESSING ANALYST: Tamera Rosnebaum PA-C NEED FOR CHART CLERK: An actuarial assistant is necessary to assist with retraction of the neurovascular elements and to employ the suction catheter. This could not be done with a signal maintenance technician IMPLANTS: Altice Perry 7.5 x 45 mm at L5 and 6.5 x 40 mm at S1 with 45 mm dominick. FINDINGS: Neuromonitoring at the start and at the end the case were normal. Left S1 screw was not placed. ESTIMATED BLOOD LOSS: Less than 30 mL. DRAINS: None. SPECIMENS: Removed hardware was sent to Pathology. COMPLICATIONS OF PROCEDURES: None. ANESTHESIOLOGIST: Wilfrid Palomares MD TYPE OF ANESTHESIA: General. INDICATIONS FOR PROCEDURE: This is a 60-year-old female who underwent anterior and posterior, lumbosacral fusion on 04/22/2016. There is concern for placement of the left S1 screw and therefore postoperatively a CAT scan was obtained and this in fact was a laterally placed screw and therefore, it is recommended that this be revised. Preoperatively, we discussed the risks, benefits, alternatives. She understood and wished to proceed. DESCRIPTION OF PROCEDURE IN DETAIL: The patient was identified in the preoperative holding area, given Ancef antibiotics, taken to the operating room , where she was placed under general anesthesia. Neuromonitoring leads were placed. Sequential compressive devices were applied. Parker catheter was already in place. Neuromonitoring was utilized during the procedure for 1 hour and 15 minutes to include SSEP, MEP, and EMG. This was performed by [employer]. Start time was 4:45 p.m., closure time was 6:00 p.m. The patient was placed in downward turned prone position over Yvon frame. All bony prominences were well padded. The back was then prepped and draped in the usual sterile fashion. I utilized the patient's previous left-sided lumbar incision. I incised the skin and removed the previous stitches. I finger dissected to the hardware, removed the set screws at L5 and S1. I then removed the dominick. Next, I took a Jamshidi needle and while leaving the S1 screw in place, I placed a Jamshidi percutaneously just medial and inferior to the previously placed screw. I then passed a guidewire and removed the Jamshidi needle. I then removed the previously placed S1 screw, which was laterally placed. I then placed a new S1 screw. In order to be able to place a dominick through the small incision, I had to replace the L5 screw in order to have returned goods sorter tabs. I therefore removed the previously placed L5 screw and placed a larger diameter 7.5 x [address]. Once both screws were in place , I stimulated the screws and there was no evidence of cortical breach. I then took a 45 mm dominick and placed the dominick and the set screws with tightening per manufacture specifications. I then removed the returned goods sorter tabs and took final AP and lateral images and I was happy with placement of the hardware and the alignment of the spine. The wound was then irrigated. Hemostasis was achieved with Bovie cautery and Surgifoam. I then closed the deep fascia with #1 Vicryl stitch, I closed subcutaneous tissue with 2-0 Vicryl stitch. Dermabond and sterile dressings were then applied. The patient was then awakened from anesthesia and taken to recovery room in stable condition. Lap, sponge and needle counts were correct x2. There were no apparent complications during the procedure. The patient admitted to the [facility]opedic [facility] for routine postoperative care to include pain control, neurovascular checks, antibiotics, and physical therapy. Dictated By: SIXTO ARORA/SANJU Conf#: [id number] DID#: [id number] GLORIA
--- NOTE | 2016-04-23 20:21 | RADRPT ---
PROCEDURE: X-ray fluoroscopy guidance CLINICAL INDICATION: AP and lateral intraoperative radiographs for fluoroscopic guidance of the lef t S1 pedicle screw exchanged. TECHNIQUE: Fluoroscopic guidance was utilized for an intraoperative procedure. COMPARISON: None available FINDINGS: Radiology: Exposure dose or time reported for procedure using fluoroscopy. Fluoro time: 13.2 mG y: 0.24 A total of 7 fluoroscopic images were obtained with no radiologist in attendance. Images were performed with interval replacement of a pedicular screw. IMPRESSION: 1. X-ray fluoroscopic guidance utilized for intraoperative procedure. 2. Status post anterior posterior spinal fusion with L5-S1 interbody spacer with associated grade 2 anterolisthesis of L5 on S1. RPTAT: PP Physician Montserrat Date Time Electronically viewed and signed by Physician Montserrat on 04/23/2016 20:21 SAMMI/
--- NOTE | 2016-04-23 20:37 | RADRPT ---
PROCEDURE: Fluoroscopic assistance for the left S1 pedicle screw exchange CLINICAL INDICATION: Lumbar spine fusion. Back pain. Malpositioned left pedicle screw TECHNIQUE: A total of 13.2 seconds fluoroscopic assistance is provided the supervision of Dr. Malka jett and 3 intraoperative C-arm exposures are submitted for review. COMPARISON: CT lumbar spine 04/22/2016 FINDINGS: Images demonstrate transpedicular screws at L5 and S1 with interbody graft, the hardware appears sat isfactory in position on the images submitted. RPTAT:HJJR IMPRESSION: Fluoroscopic intraoperative assistance for exchange of a left S1 transpedicular screw. Physician Varghese Date Time Electronically viewed and signed by Physician Varghese on 04/23/2016 20:37 JR/
[2016-04-23] MEDS: ATORVASTATIN 10 MG TAB PO SCH (21:42)
[2016-04-23] MEDS: CEFAZOLIN 1 GM/50 ML (PMX) 50 ML IVPB SCH (21:44)
[2016-04-24 00:05] VITALS: BP 121/56; PULSE 88
[2016-04-24 00:56] VITALS: BP 134/70; PULSE 86; RESP 17
[2016-04-24] MEDS: D5W-0.45 NACL + KCL 20 MEQ 1,000 ML IV SCH ×4 (02:32→22:32)
[2016-04-24] MEDS: ACETAMINOPHEN 325 MG TAB PO PRN ×3 (04:52→18:31)
[2016-04-24 05:07] LABS: ADD SCAN DIFF NO
[2016-04-24 05:14] LABS: HEMOGLOBIN 8.8 g/dl (12.0-16.0); LYMPHOCYTES # 0.9 10^3/ul (0.8-2.9); LYMPHOCYTES % 9.3 % (15.0-51.0); MEAN CORPUSCULAR HEMOGLOBIN 28.4 pg (29.0-33.0); MEAN CORPUSCULAR HGB CONC 31.4 g/dl (32.0-37.0); MEAN CORPUSCULAR VOLUME 90.3 fl (82.0-101.0); MEAN PLATELET VOLUME 12.1 fl (7.4-10.4); MONOCYTES % 10.5 % (0.0-11.0); NEUTROPHIL # 7.4 10^3/ul (1.6-7.5); NEUTROPHILS % 79.7 % (39.0-77.0); PLATELET COUNT 164 10^3/UL (140-415); RED CELL DISTRIBUTION WIDTH 12.2 % (11.5-14.5); WHITE BLOOD COUNT 9.3 10^3/ul (4.8-10.8)
[2016-04-24 05:34] LABS: POTASSIUM 4.3 mmol/L (3.5-5.1)
[2016-04-24 05:37] LABS: CREATININE 0.69 mg/dl (0.44-1.00)
[2016-04-24 05:38] LABS: CALCIUM 8.4 mg/dl (8.4-10.2); MAGNESIUM 2.2 mg/dl (1.7-2.5)
[2016-04-24] MEDS: LEVOTHYROXINE 112 MCG TAB PO SCH (05:38)
[2016-04-24] MEDS: PANTOPRAZOLE 40 MG INJ IV SCH (05:38)
[2016-04-24] MEDS: CEFAZOLIN 1 GM/50 ML (PMX) 50 ML IVPB SCH ×2 (05:38→14:03)
[2016-04-24 05:52] VITALS: BP 136/63; PULSE 94; RESP 17
--- NOTE | 2016-04-24 07:59 | PN ---
Date/Time of Note Date/Time of Note DATE: 04/24/16 TIME: 07:57 Assessment/Plan Lines/Catheters IV Catheter Type (from Nrsg): Peripheral IV Parker in Place (from Nrsg): Yes Assessment/Plan Assessment/Plan Postop day 2 status post lumbosacral fusion and postoperative day 1 status post revision left-sided hardware. Since the second surgery her left low back buttock and left leg have significantly improved. We will continue with routine postoperative care Subjective 24 Hr Interval Summary Complains of less back and left leg pain Exam/Review of Systems Vital Signs Vitals Vital Signs Date Time Temp Pulse Resp B/P Pulse Ox O2 Delivery O2 Flow Rate FiO2 04/24/16 05:52 98.5 94 17 136/63 94 Room Air 04/23/16 20:00 2.0 Intake and Output 04/23/16 04/23/16 04/24/16 15:00 23:00 07:00 Intake Total 1450 ml 1330 ml Output Total 525 ml 2800 ml Balance 925 ml -1470 ml Exam Free Text/Dictation Neurovascularly intact Results Result Diagram: 04/24/16 0430 04/24/16 0430 ERIN SHELBY MD Apr 24, 2016 07:59
[2016-04-24 08:36] VITALS: BP 115/60; RESP 18
[2016-04-24] MEDS: DOCUSATE SODIUM 100 MG CAP PO SCH ×2 (09:29→20:44)
[2016-04-24] MEDS: ASCORBIC ACID 500 MG TAB PO SCH (09:29)
[2016-04-24] MEDS: DIAZEPAM 5 MG TAB PO PRN (09:34)
--- NOTE | 2016-04-24 12:47 | CONS ---
Date/Time of Note Date/Time of Note DATE: 04/24/16 TIME: 12:42 Assessment/Plan Assessment/Plan Chief Complaint/Hosp Course 1. she is 1 day post op removal and replacement of L5 and S1 pedicle screws .She is on STEEL TURNER for pain management . 2. continue current medication and PT . Problems: Consultation Date/Type/Reason Admit Date/Time Apr 22, 2016 at 05:24 Initial Consult Date 24 HR Interval Summary Free Text/Dictation She had a removal and replacement of L5 S1 pedicle screws yesterday . She is sleeping but rouses easily to verbal stimuli . Exam/Review of Systems Vital Signs Vitals Vital Signs Date Time Temp Pulse Resp B/P Pulse Ox O2 Delivery O2 Flow Rate FiO2 04/24/16 08:36 98.3 99 18 115/60 97 04/24/16 05:52 Room Air 04/23/16 20:00 2.0 Intake and Output 04/23/16 04/23/16 04/24/16 15:00 23:00 07:00 Intake Total 1450 ml 1330 ml Output Total 525 ml 2800 ml Balance 925 ml -1470 ml Exam Constitutional: alert Respiratory: clear to auscultation, normal air movement Cardiovascular: regular rate and rhythm Musculoskeletal: nl extremities to inspection Results Result Diagram: 04/24/16 0430 04/24/16 0430 Results 24 hrs Laboratory Tests Test 04/24/16 04:30 Anion Gap 13 Basophils # 0.0 Basophils % 0.0 Blood Urea Nitrogen 10 Calcium Level 8.4 Carbon Dioxide Level 30 Chloride Level 102 Creatinine 0.69 Eosinophils # 0.0 Eosinophils % 0.0 Glucose Level 146 Hematocrit 28.0 L Hemoglobin 8.8 L Lymphocytes # 0.9 Lymphocytes % 9.3 L Magnesium Level 2.2 Mean Corpuscular Hemoglobin 28.4 L Mean Corpuscular Hemoglobin Concent 31.4 L Mean Corpuscular Volume 90.3 Mean Platelet Volume 12.1 H Monocytes # 1.0 H Monocytes % 10.5 Neutrophils # 7.4 Neutrophils % 79.7 H Nucleated Red Blood Cells # 0.0 Nucleated Red Blood Cells % 0.0 Phosphorus Level 1.9 L Platelet Count 164 # Potassium Level 4.3 Red Blood Count 3.10 L Red Cell Distribution Width 12.2 Sodium Level 141 White Blood Count 9.3 Medications Medications Current Medications Oxycodone/ Acetaminophen (Endocet (10/ 325)) 1 tab Q4H PRN PO PAIN LEVEL 1-5; Start 04/22/16 at 07:00 Oxycodone/ Acetaminophen (Endocet (10/ 325)) 2 tab Q4H PRN PO PAIN LEVEL 6-10; Start 04/22/16 at 07:00 Hydromorphone HCl (Dilaudid) 0.2 mg Q1H PRN IV BREAKTHROUGH PAIN; Start at 07:00 Pantoprazole (Protonix Iv) 40 mg DAILY@06 IV Last administered on 04/24/16 05: 38; Admin Dose 40 MG; Start 04/23/16 at 06:00 Ascorbic Acid (Vitamin C) 1,000 mg DAILY PO Last administered on 04/24/16 09:29 ; Admin Dose 1,000 MG; Start 04/22/16 at 09:00 Diazepam (Valium) 5 mg TID PRN PO MUSCLE SPASMS Last administered on 04/24/16 09:34; Admin Dose 5 MG; Start 04/22/16 at 07:00 Diphenhydramine HCl (Benadryl) 25 mg Q6H PRN PO ITCHING; Start 04/22/16 at 07: 00 Atorvastatin Calcium (Lipitor) 10 mg QHS PO Last administered on 04/23/16 21:42 ; Admin Dose 10 MG; Start 04/22/16 at 21:00 Levothyroxine Sodium 112 mcg 112 mcg DAILY@06 PO Last administered on 04/24/16 05:38; Admin Dose 112 MCG; Start 04/23/16 at 06:00 Potassium Chloride/Dextrose/ Sod Cl (D5-1/2ns + KCl 20 Meq) 1,000 ml @ 100 mls/ hr Q10H IV Last administered on 04/24/16 09:29; Admin Dose 100 MLS/HR; Start at 16:32 Ondansetron HCl (Zofran Inj) 4 mg Q6H PRN IV NAUSEA AND/OR VOMITING; Start 04/23 at 17:00 Bisacodyl (Dulcolax Supp) 10 mg DAILY PRN [place] CONSTIPATION; Start 04/23/16 at 17: 00 Docusate Sodium (Colace) 100 mg BID PO Last administered on 04/24/16 09:29; Admin Dose 100 MG; Start 04/23/16 at 21:00 Al Hydrox/Mg Hydrox/Simethicone (Mag-Al Plus) 15 ml Q6H PRN PO CONSTIPATION/ DYSPEPSIA; Start 04/23/16 at 17:00 Acetaminophen (Tylenol Tab) 650 mg Q4H PRN PO GILMAN OR TEMP GREATER THAN 101.3F Last administered on 04/24/16 12:21; Admin Dose 650 MG; Start 04/23/16 at 17:00 Phenol (Cepastat Lozenge) 1 lozenge PRN PRN [place] SORE THROAT; Start 04/23/16 at 17 :00 Diphenhydramine HCl (Benadryl) 25 mg Q6H PRN IV ITCHING; Start 04/23/16 at 17:00 Naloxone HCl (Narcan) 0.2 mg Q2M PRN IV RR 8 BREATHS/MIN OR LESS; Start at 17:00 Hydromorphone HCl (Dilaudid STEEL TURNER) STEEL TURNER to be started in PACU Q4PCA IV Last administered on 04/23/16 18:19; Admin Dose 6 MG; Start 04/23/16 at 17:00 Miscellaneous Information 1. Hold STEEL TURNER at 1,000... STEEL TURNER IV ; Start 04/23/16 at 17: 00 Cefazolin Sodium (Ancef 1 Gm/50 ml (Pmx)) 50 ml @ 100 mls/hr Q8H IVPB Last administered on 04/24/16 05:38; Admin Dose 100 MLS/HR; Start 04/23/16 at 21:30; Stop 04/24/16 at 13:59 LETY LOMBARDI MD Apr 24, 2016 12:47
[2016-04-24] MEDS: HYDROmorphONE 0.2 MG/ML PCA IV SCH (20:40)
[2016-04-24] MEDS: ATORVASTATIN 10 MG TAB PO SCH (20:44)
[2016-04-24 21:47] VITALS: BP 108/56; RESP 20
[2016-04-25] MEDS: D5W-0.45 NACL + KCL 20 MEQ 1,000 ML IV SCH ×2 (01:18→18:32)
[2016-04-25 04:48] LABS: ADD SCAN DIFF NO
[2016-04-25 04:50] LABS: BASOPHILS % 0.1 % (0.0-2.0); EOSINOPHILS % 0.4 % (0.0-7.0); HEMATOCRIT 28.2 % (37.0-47.0); HEMOGLOBIN 8.9 g/dl (12.0-16.0); LYMPHOCYTES % 25.7 % (15.0-51.0); MEAN CORPUSCULAR HEMOGLOBIN 28.7 pg (29.0-33.0); MEAN CORPUSCULAR HGB CONC 31.6 g/dl (32.0-37.0); MEAN PLATELET VOLUME 11.4 fl (7.4-10.4); MONOCYTE # 0.8 10^3/ul (0.3-0.9); MONOCYTES % 10.2 % (0.0-11.0); NEUTROPHILS % 63.1 % (39.0-77.0); PLATELET COUNT 199 10^3/UL (140-415); RED CELL DISTRIBUTION WIDTH 12.1 % (11.5-14.5); WHITE BLOOD COUNT 7.9 10^3/ul (4.8-10.8)
[2016-04-25 05:17] LABS: POTASSIUM 4.2 mmol/L (3.5-5.1)
[2016-04-25 05:20] LABS: CREATININE 0.67 mg/dl (0.44-1.00)
[2016-04-25 05:21] LABS: MAGNESIUM 2.1 mg/dl (1.7-2.5)
[2016-04-25] MEDS: LEVOTHYROXINE 112 MCG TAB PO SCH (05:44)
[2016-04-25] MEDS: PANTOPRAZOLE (EC) 40 MG TAB PO SCH (05:44)
[2016-04-25] MEDS: HYDROmorphONE 0.2 MG/ML PCA IV SCH (06:57)
[2016-04-25 08:01] VITALS: BP 117/62; RESP 17
[2016-04-25] MEDS: ASCORBIC ACID 500 MG TAB PO SCH (08:55)
[2016-04-25] MEDS: DOCUSATE SODIUM 100 MG CAP PO SCH ×2 (08:55→20:48)
--- NOTE | 2016-04-25 11:16 | CONS ---
Date/Time of Note Date/Time of Note DATE: 04/25/16 TIME: 11:14 Assessment/Plan Assessment/Plan Chief Complaint/Hosp Course 1. she is 2 days post op removal and replacement of L5 and S1 pedicle screws . She is doing much better today without pain.. 2. continue current medication and PT . Problems: Consultation Date/Type/Reason Admit Date/Time Apr 22, 2016 at 05:24 Type of Consultation: medicine 24 HR Interval Summary Free Text/Dictation she is now 2 days postop a redo surgery on her lumbar spine. She is doing much better. She does not have any pain. Constitutional: improved, no complaints Exam/Review of Systems Vital Signs Vitals Vital Signs Date Time Temp Pulse Resp B/P Pulse Ox O2 Delivery O2 Flow Rate FiO2 04/25/16 08:01 98.7 95 17 117/62 96 04/24/16 05:52 Room Air 04/23/16 20:00 2.0 Intake and Output 04/24/16 04/24/16 04/25/16 15:00 23:00 07:00 Intake Total 2160 ml 980 ml Output Total 2400 ml 900 ml Balance -240 ml 80 ml Exam Constitutional: alert, oriented, well developed Psych: nl mood/affect, no complaints Respiratory: clear to auscultation, normal air movement Cardiovascular: nl pulses, regular rate and rhythm Musculoskeletal: nl extremities to inspection Results Result Diagram: 04/25/16 0428 04/25/16 0428 Results 24 hrs Laboratory Tests Test 04/25/16 04:28 Anion Gap 13 Basophils # 0.0 Basophils % 0.1 Blood Urea Nitrogen 10 Calcium Level 8.0 L Carbon Dioxide Level 28 Chloride Level 103 Creatinine 0.67 Eosinophils # 0.0 Eosinophils % 0.4 Glucose Level 119 Hematocrit 28.2 L Hemoglobin 8.9 L Lymphocytes # 2.0 Lymphocytes % 25.7 Magnesium Level 2.1 Mean Corpuscular Hemoglobin 28.7 L Mean Corpuscular Hemoglobin Concent 31.6 L Mean Corpuscular Volume 91.0 Mean Platelet Volume 11.4 H Monocytes # 0.8 Monocytes % 10.2 Neutrophils # 5.0 Neutrophils % 63.1 Nucleated Red Blood Cells # 0.0 Nucleated Red Blood Cells % 0.0 Platelet Count 199 # Potassium Level 4.2 Red Blood Count 3.10 L Red Cell Distribution Width 12.1 Sodium Level 140 White Blood Count 7.9 Medications Medications Current Medications Oxycodone/ Acetaminophen (Endocet (10/ 325)) 1 tab Q4H PRN PO PAIN LEVEL 1-5; Start 04/22/16 at 07:00 Oxycodone/ Acetaminophen (Endocet (10/ 325)) 2 tab Q4H PRN PO PAIN LEVEL 6-10; Start 04/22/16 at 07:00 Hydromorphone HCl (Dilaudid) 0.2 mg Q1H PRN IV BREAKTHROUGH PAIN; Start at 07:00 Ascorbic Acid (Vitamin C) 1,000 mg DAILY PO Last administered on 04/25/16 08:55 ; Admin Dose 1,000 MG; Start 04/22/16 at 09:00 Diazepam (Valium) 5 mg TID PRN PO MUSCLE SPASMS Last administered on 04/24/16 09:34; Admin Dose 5 MG; Start 04/22/16 at 07:00 Diphenhydramine HCl (Benadryl) 25 mg Q6H PRN PO ITCHING; Start 04/22/16 at 07: 00 Atorvastatin Calcium (Lipitor) 10 mg QHS PO Last administered on 04/24/16 20:44 ; Admin Dose 10 MG; Start 04/22/16 at 21:00 Levothyroxine Sodium 112 mcg 112 mcg DAILY@06 PO Last administered on 04/25/16 05:44; Admin Dose 112 MCG; Start 04/23/16 at 06:00 Potassium Chloride/Dextrose/ Sod Cl (D5-1/2ns + KCl 20 Meq) 1,000 ml @ 100 mls/ hr Q10H IV Last administered on 04/25/16 01:18; Admin Dose 100 MLS/HR; Start at 16:32 Ondansetron HCl (Zofran Inj) 4 mg Q6H PRN IV NAUSEA AND/OR VOMITING; Start 04/23 at 17:00 Bisacodyl (Dulcolax Supp) 10 mg DAILY PRN [place] CONSTIPATION; Start 04/23/16 at 17: 00 Docusate Sodium (Colace) 100 mg BID PO Last administered on 04/25/16 08:55; Admin Dose 100 MG; Start 04/23/16 at 21:00 Al Hydrox/Mg Hydrox/Simethicone (Mag-Al Plus) 15 ml Q6H PRN PO CONSTIPATION/ DYSPEPSIA; Start 04/23/16 at 17:00 Acetaminophen (Tylenol Tab) 650 mg Q4H PRN PO GILMAN OR TEMP GREATER THAN 101.3F Last administered on 04/24/16 18:31; Admin Dose 650 MG; Start 04/23/16 at 17:00 Phenol (Cepastat Lozenge) 1 lozenge PRN PRN [place] SORE THROAT; Start 04/23/16 at 17 :00 Diphenhydramine HCl (Benadryl) 25 mg Q6H PRN IV ITCHING; Start 04/23/16 at 17:00 Naloxone HCl (Narcan) 0.2 mg Q2M PRN IV RR 8 BREATHS/MIN OR LESS; Start at 17:00 Miscellaneous Information 1. Hold SLIVER CUTTER at 1,000... SLIVER CUTTER IV ; Start 04/23/16 at 17: 00 Pantoprazole (Protonix Tab) 40 mg DAILY@06 PO Last administered on 04/25/16 05: 44; Admin Dose 40 MG; Start 04/25/16 at 06:00 Hydromorphone HCl (Dilaudid SLIVER CUTTER) SLIVER CUTTER to be started in PACU Q4PCA IV Last administered on 04/25/16 06:57; Admin Dose 6 MG; Start 04/24/16 at 19:00 LETY LOMBARDI MD Apr 25, 2016 11:16
[2016-04-25] MEDS: ACETAMINOPHEN 325 MG TAB PO PRN (13:00)
--- NOTE | 2016-04-25 13:02 | PN ---
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 D/C planning for tomorrow AM Subjective 24 Hr Interval Summary patient feeling much better left leg pain improved back pain improving Exam/Review of Systems Vital Signs Vitals Vital Signs Date Time Temp Pulse Resp B/P Pulse Ox O2 Delivery O2 Flow Rate FiO2 04/25/16 08:01 98.7 95 17 117/62 96 04/24/16 05:52 Room Air 04/23/16 20:00 2.0 Intake and Output 04/24/16 04/24/16 04/25/16 15:00 23:00 07:00 Intake Total 2160 ml 980 ml Output Total 2400 ml 900 ml Balance -240 ml 80 ml Exam Free Text/Dictation NVID no SOB, calf pain Results Result Diagram: 04/25/16 0428 04/25/16 0428 BARRIE NAIK PA-C Apr 25, 2016 13:02
[2016-04-25] MEDS: OXYCODONE/ACETAMINOPHEN (10/325) TAB PO PRN ×3 (13:05→22:28)
[2016-04-25 19:27] VITALS: BP 120/60; RESP 16
[2016-04-25] MEDS: ATORVASTATIN 10 MG TAB PO SCH (20:48)
[2016-04-26] MEDS: OXYCODONE/ACETAMINOPHEN (10/325) TAB PO PRN ×3 (02:18→12:14)
[2016-04-26] MEDS: D5W-0.45 NACL + KCL 20 MEQ 1,000 ML IV SCH (04:32)
[2016-04-26] MEDS: LEVOTHYROXINE 112 MCG TAB PO SCH (06:32)
[2016-04-26] MEDS: PANTOPRAZOLE (EC) 40 MG TAB PO SCH (06:32)
[2016-04-26 07:58] VITALS: BP 107/67; RESP 18
[2016-04-26] MEDS: ASCORBIC ACID 500 MG TAB PO SCH (08:36)
[2016-04-26] MEDS: DOCUSATE SODIUM 100 MG CAP PO SCH (08:36)
[2016-04-26] MEDS: ACETAMINOPHEN 325 MG TAB PO PRN (10:23)
--- NOTE | 2016-04-26 11:59 | CONS ---
Date/Time of Note Date/Time of Note DATE: 04/26/16 TIME: 11:58 Assessment/Plan Assessment/Plan Additional Assessment/Plan -stable post op course -medically cleared for discharge Consultation Date/Type/Reason Admit Date/Time Apr 22, 2016 at 05:24 Initial Consult Date Type of Consultation: medicine 24 HR Interval Summary Free Text/Dictation feeling well, ready to go home. Exam/Review of Systems Vital Signs Vitals Vital Signs Date Time Temp Pulse Resp B/P Pulse Ox O2 Delivery O2 Flow Rate FiO2 04/26/16 07:58 98.4 78 18 107/67 98 04/24/16 05:52 Room Air 04/23/16 20:00 2.0 Intake and Output 04/25/16 04/25/16 04/26/16 15:00 23:00 07:00 Intake Total 1400 ml 560 ml Output Total 850 ml Balance 550 ml 560 ml Exam Constitutional: alert, oriented, well developed Respiratory: clear to auscultation, normal air movement Cardiovascular: nl pulses, regular rate and rhythm Results Result Diagram: 04/25/16 0428 04/25/16 0428 Medications Medications Current Medications Oxycodone/ Acetaminophen (Endocet (10/ 325)) 1 tab Q4H PRN PO PAIN LEVEL 1-5 Last administered on 04/26/16 08:07; Admin Dose 1 TAB; Start 04/22/16 at 07:00 Oxycodone/ Acetaminophen (Endocet (10/ 325)) 2 tab Q4H PRN PO PAIN LEVEL 6-10; Start 04/22/16 at 07:00 Hydromorphone HCl (Dilaudid) 0.2 mg Q1H PRN IV BREAKTHROUGH PAIN; Start at 07:00 Ascorbic Acid (Vitamin C) 1,000 mg DAILY PO Last administered on 04/26/16 08:36 ; Admin Dose 1,000 MG; Start 04/22/16 at 09:00 Diazepam (Valium) 5 mg TID PRN PO MUSCLE SPASMS Last administered on 04/24/16 09:34; Admin Dose 5 MG; Start 04/22/16 at 07:00 Diphenhydramine HCl (Benadryl) 25 mg Q6H PRN PO ITCHING; Start 04/22/16 at 07: 00 Atorvastatin Calcium (Lipitor) 10 mg QHS PO Last administered on 04/25/16 20:48 ; Admin Dose 10 MG; Start 04/22/16 at 21:00 Levothyroxine Sodium 112 mcg 112 mcg DAILY@06 PO Last administered on 04/26/16 06:32; Admin Dose 112 MCG; Start 04/23/16 at 06:00 Potassium Chloride/Dextrose/ Sod Cl (D5-1/2ns + KCl 20 Meq) 1,000 ml @ 100 mls/ hr Q10H IV Last administered on 04/25/16 01:18; Admin Dose 100 MLS/HR; Start at 16:32 Ondansetron HCl (Zofran Inj) 4 mg Q6H PRN IV NAUSEA AND/OR VOMITING; Start 04/23 at 17:00 Bisacodyl (Dulcolax Supp) 10 mg DAILY PRN [place] CONSTIPATION; Start 04/23/16 at 17: 00 Docusate Sodium (Colace) 100 mg BID PO Last administered on 04/26/16 08:36; Admin Dose 100 MG; Start 04/23/16 at 21:00 Al Hydrox/Mg Hydrox/Simethicone (Mag-Al Plus) 15 ml Q6H PRN PO CONSTIPATION/ DYSPEPSIA; Start 04/23/16 at 17:00 Acetaminophen (Tylenol Tab) 650 mg Q4H PRN PO GILMAN OR TEMP GREATER THAN 101.3F Last administered on 04/26/16 10:23; Admin Dose 650 MG; Start 04/23/16 at 17:00 Phenol (Cepastat Lozenge) 1 lozenge PRN PRN [place] SORE THROAT; Start 04/23/16 at 17 :00 Diphenhydramine HCl (Benadryl) 25 mg Q6H PRN IV ITCHING; Start 04/23/16 at 17:00 Naloxone HCl (Narcan) 0.2 mg Q2M PRN IV RR 8 BREATHS/MIN OR LESS; Start at 17:00 Pantoprazole (Protonix Tab) 40 mg DAILY@06 PO Last administered on 04/26/16 06: 32; Admin Dose 40 MG; Start 04/25/16 at 06:00 VALENTÍN ROLLE MD Apr 26, 2016 11:59
--- NOTE | 2016-04-29 09:14 | DS ---
DATE OF ADMISSION: 04/22/2016 DATE OF DISCHARGE: 04/26/2016 ADMITTING DIAGNOSIS: Spondylolisthesis. DISCHARGE DIAGNOSIS: Spondylolisthesis. PROCEDURE: The patient was taken to the operating room initially on 04/22/2016 and underwent anteri or/posterior fusion at L5-S1. On 04/23/2016 she was taken back to the operating room to revise the pedicle screws on the left. HOSPITAL COURSE: The patient was admitted to the [facility] after undergoing the initial anter ior/posterior lumbar fusion. Intraoperatively I was concerned about placement of the left S1 screw, and therefore postoperatively a CAT scan was obtained. It appeared that the left S1 screw was some what lateral, and therefore it was recommended that she return to the operating room on 04/23/2016, where I revised the screws on the left. She was readmitted back to the hospital after undergoing th e second surgery, and the remainder of her hospital course was uncomplicated. She had improvement i n her symptoms, and by 04/26/2016 she was deemed stable for discharge, with followup arranged with t [place] undersigned. Dictated By: ERIN ARORA/SANJU Conf#: [id number] DID#: [id number]
== END 2016-04-26 12:35 | disposition home or self-care (01) | DRG 454 ==
LOC: REC 05:24 → MS1 14:40
PROVIDERS: ADMIT Specialist; ATTEND Specialist
PROC: 0SG30A1 (ICD-10-PCS; 2016-04-22)
PROC: 4A11X4G Monitoring of Peripheral Nervous Electrical Activity, Intraoperative, External Approach (ICD-10-PCS; 2016-04-22)
PROC: 07DS3ZZ Extraction of Vertebral Bone Marrow, Percutaneous Approach (ICD-10-PCS; 2016-04-22)
PROC: 0SG30A0 Fusion of Lumbosacral Joint with Interbody Fusion Device, Anterior Approach, Anterior Column, Open Approach (ICD-10-PCS; principal; 2016-04-22 07:00)
PROC: 0QW004Z Revision of Internal Fixation Device in Lumbar Vertebra, Open Approach (ICD-10-PCS; 2016-04-23)
DX: M43.17 Spondylolisthesis, lumbosacral region (principal); T84.84XA Pain due to internal orthopedic prosthetic devices, implants and grafts, initial encounter; E03.9 Hypothyroidism, unspecified; T84.028A Dislocation of other internal joint prosthesis, initial encounter; M48.07 Spinal stenosis, lumbosacral region; M54.17 Radiculopathy, lumbosacral region; E78.5 Hyperlipidemia, unspecified; Z87.891 Personal history of nicotine dependence; Y79.3 Surgical instruments, materials and orthopedic devices (including sutures) associated with adverse incidents; Y92.234 Operating room of hospital as the place of occurrence of the external cause
CPT/HCPCS: 72020; 72100; 72114; 72131; 74000; 80048; 83735; 84100; 85025; 86850; 86900; 86901; 86920; 86999; 88300; 88304; 97116; 97162; 97164; 97530; C1713; C9113; J0131; J0360; J0690; J1100; J1170; J1644; J2001; J2250; J2370; J2405; J2710; J2765; J3010; J3480; J7120; V2790

== ENCOUNTER → 2016-05-05 | Outpatient (CLI) | payer BC ==
[~2016-05-05] MED LIST: ATOR10TA65 PO; DIAZ5SOL PO; LEVO112T2 PO
--- NOTE | 2016-05-05 11:40 | RADRPT ---
PROCEDURE: Ultrasound of the bilateral lower extremity venous system. CLINICAL INDICATION: Bilateral leg pain and swelling, deep venous thrombosis TECHNIQUE: Campbell scale with and without compression, color doppler, spectral doppler of the venous system of the bilateral lower extremities was performed. Venous augmentation maneuvers were utilized . COMPARISON: No prior studies are available for comparison. FINDINGS: RIGHT: Common femoral vein: Patent. Superficial femoral vein: Patent. Popliteal vein: Patent. Calf veins: Patent. No soft tissue abnormalities are identified. LEFT: Common femoral vein: Patent. Superficial femoral vein: Patent. Popliteal vein: Patent. Calf veins: Patent. No soft tissue abnormalities are identified. IMPRESSION: No evidence of a deep vein thrombosis within the bilateral lower extremities. RPTAT: AADD .Shane Loza MD, Date Time Electronically viewed and signed by .Shane Loza MD, on 05/05/2016 11:39 .B/
== END | disposition home or self-care (01) ==
LOC: VAS 10:57
PROVIDERS: ATTEND Specialist
DX: M79.605 Pain in left leg (principal); M79.604 Pain in right leg
CPT/HCPCS: 93970